=== PATIENT | female | born 1960 | race Caucasian/White ===

== ENCOUNTER → 2016-11-07 | Outpatient (CLI) | payer OTHER ==
--- NOTE | 2016-11-07 16:45 | RADIOLOGY REPORT (SQ) ---
EXAM DESCRIPTION: MRI LUMBAR SPINE WITHOUT COMPLETED DATE/TIME: 11/07/2016 3:46 pm REASON FOR STUDY: LOWER BACK PAIN SCIATICA M54.5 LOW BACK PAIN M54.30 SCIATICA, UNSPECIFIED SIDE COMPARISON: None. TECHNIQUE: Sagittal and Axial imaging includes T1, T2, STIR and gradient echo sequences. Coronal T2/ HASTE imaging. LIMITATIONS: None. FINDINGS: VISUALIZED UPPER ABDOMEN: Left upper pole 5 cm renal cortical cyst SEGMENTATION: No transitional anatomy. The lowest well-developed disc space is labeled L5-S1. ALIGNMENT: Anatomic. VERTEBRAE: Intact. BONE MARROW: Normal. No marrow replacement or reactive changes. DISC SIGNAL: Decreased T2 weighted intervertebral disc signal with disc space loss of height at L1-2. POSTERIOR ELEMENTS: Generally intact. No pars defect evident. HARDWARE: None in the spine. CORD AND CONUS: Normal in size and signal intensity. Conus at the L1 level. SOFT TISSUES: No aortic aneurysm seen. No bulky retroperitoneal adenopathy or mass. No paraspinal mas s or fluid. T11-12: No central or foraminal stenosis. Mild bilateral facet hypertrophy. T12-L1: No central or foraminal stenosis. L1-L2: Mild diffuse posterior disc bulge and mild bilateral facet and ligament hypertrophy cause bord delaney central canal narrowing. Mild bilateral inferior foraminal narrowing without exiting L1 nerve root impingement. L2-L3: No significant spinal stenosis or exit foraminal stenosis. Mild bilateral facet hypertrophy. L3-L4: Broad diffuse posterior disc bulging is present with more focal left foraminal and lateral pro trusion. This finding along with moderate bilateral facet and ligament hypertrophy causes borderline central canal narrowing. No right foraminal stenosis. Mild left foraminal stenosis inferiorly with out exiting L3 nerve root impingement. L4-L5: Mild diffuse posterior disc bulging as with more focal left foraminal and lateral disc bulge. This finding along with moderate facet and ligament hypertrophy causes borderline central canal narr owing. No right foraminal narrowing. Mild inferior left foraminal narrowing without exiting L4 nerv e root impingement. L5-S1: No significant spinal stenosis or exit foraminal stenosis. Mild bilateral facet hypertrophy. SACRUM: Visualized upper sacrum intact. OTHER: No other significant findings. IMPRESSION: Mild diffuse degenerative changes as above TECHNICAL DOCUMENTATION: JOB ID: [id number]- All Rights Reserved
== END ==
LOC: RAD 14:45
PROVIDERS: ATTEND Physician Assistant
DX: M54.40 Lumbago with sciatica, unspecified side (principal)
CPT/HCPCS: 72148

== ENCOUNTER 2018-12-06 12:50 | Emergency (ER) | payer OTHER ==
--- NOTE | 2018-12-06 13:34 | ER Document Report ---
ED General - General Chief Complaint: Leg Injury Stated Complaint: RIGHT LEG INJURY Time Seen by Provider: 12/06/18 13:34 Primary Care Provider: LISANDRA CHAVARRIA MD [Primary Care Provider] - 12/16/18 (FOR SUTURE REMOVAL) TRAVEL OUTSIDE OF THE [place] IN LAST 30 DAYS: No - HPI Notes: 58 year old female to the ED with C/O right lower leg injury. States she has been moving and was packing a wooden box. States she dropped what she was packing and it cut her as she dropped. States that it bled alot and she was concerned so she called EMS. EMS came to her home and dressed the wound. States she is unsure of when her last tetanus was. Denies any fevers, chills, NVD, any other complaints. She is not on any blood thinners. - Related Data Allergies/Adverse Reactions: levofloxacin [From Levaquin] Allergy (Verified 12/06/18 13:07) NSAIDS (Non-Steroidal Anti-Inflamma Allergy (Verified 12/06/18 13:07) Past Medical History - General Information source: Patient - Social History Smoking Status: Never Smoker Frequency of alcohol use: None Drug Abuse: None Family History: Reviewed & Not Pertinent Review of Systems - Review of Systems Constitutional: denies: Chills, Diaphoresis, Fever EENT: No symptoms reported Cardiovascular: denies: Chest pain, Palpitations, Dyspnea, Edema Respiratory: denies: Short of breath Gastrointestinal: denies: Abdominal pain, Diarrhea, Nausea, Vomiting Genitourinary: No symptoms reported Musculoskeletal: Other - right anterior lyn pain Skin: Other - right anterior lyn laceration -: Yes All other systems reviewed and negative Physical Exam - Vital signs Vitals: Temp Pulse Resp BP Pulse Ox 98.4 F 78 16 102/72 100 12/06/18 13:01 12/06/18 13:01 12/06/18 13:01 12/06/18 13:01 12/06/18 13:01 Interpretation: Normal - General General appearance: Appears well In distress: None - HEENT Head: Normocephalic, Atraumatic Eyes: Normal Pupils: PERRL - Respiratory Respiratory status: No respiratory distress Chest status: Nontender Breath sounds: Normal Chest palpation: Normal - Cardiovascular Rhythm: Regular Heart sounds: Normal auscultation Murmur: No - Abdominal Inspection: Normal Distension: No distension Bowel sounds: Normal Tenderness: Nontender Organomegaly: No organomegaly - Skin Skin Temperature: Warm Skin Moisture: Dry Skin irregularity: Laceration - to the right anterior lyn, there is a partial skin avulsion with a laceration. To the proximal portion of the wound is an soft tissue avulsion and cannot be repaired. To the lower portion of the wound, it will required repair. Course - Vital Signs Vital signs: Temp Pulse Resp BP Pulse Ox 98.4 F 72 16 113/78 100 12/06/18 13:01 12/06/18 17:34 12/06/18 17:34 12/06/18 17:34 12/06/18 17:34 - Transfer of Care Notes: 12/06/18 Impression: Lower leg laceration and skin tear. Patient tolerated repair well. Suture removal in 10 days. Will cover with Abx prophylactically. Will have her follow with PCP. Encouraged to return if fever, worsening pain, redness, purulent drainage. Patient agrees with the plan. Procedures - Laceration/Wound Repair Right Anterior Leg Time completed: 14:00 Wound length (cm): 4 Wound's Depth, Shape: Superficial Laceration pre-procedure: Sterile PPE donned, Sterile drapes applied, Shur-Clens applied Anesthetic type: 1% Lidocaine Volume Anesthetic (mLs): 5 Wound explored: Clean Irrigated w/ Saline (mLs): 100 Wound Debrided: Minimal Wound Repaired With: Sutures Suture Size/Type: 4:0 Number of Sutures: 4 Layer Closure?: No Post-procedure wound care: Other - nonadhesive dressing Post-procedure NV exam normal: Yes Discharge - Discharge Clinical Impression: Laceration of right lower leg, Skin tear Condition: Good Disposition: HOME, SELF-CARE Instructions: Laceration Care ([facility]) Additional Instructions: KEEP WOUND CLEAN AND DRY. SUTURE REMOVAL IN 10 DAYS. RETURN IF WORSENING PAIN, FEVERS, REDNESS, PUS. Prescriptions: Cephalexin Monohydrate [Keflex 500 mg Capsule] 500 mg PO QID 5 Days #20 capsule Referrals: LISANDRA CHAVARIRA MD [Primary Care Provider] - 12/16/18 (FOR SUTURE REMOVAL)
[2018-12-06] MEDS ORDERED: LIDOCAINE 1% INJ-PF (10 MG/ML) 30 ML SDV INJ ONE (14:37)
[2018-12-06] MEDS ORDERED: ACETAMINOPHEN 325 MG TABLET PO ONE (14:38)
[2018-12-06] MEDS ORDERED: DIPH/PERTUSS(ACELL)/TETANUS VAC/PF 0.5 ML SYR (>=10YO) IM ONE (14:40)
[2018-12-06 17:35] VITALS: BP 113/78
== END 2018-12-06 17:35 | disposition home or self-care (01) ==
LOC: ER 12:50
DX: S81.811A Laceration without foreign body, right lower leg, initial encounter (principal); W20.8XXA Other cause of strike by thrown, projected or falling object, initial encounter; Y93.E6 Activity, residential relocation; Y92.009 Unspecified place in unspecified non-institutional (private) residence as the place of occurrence of the external cause; Z88.1 Allergy status to other antibiotic agents; Z88.8 Allergy status to other drugs, medicaments and biological substances
CPT/HCPCS: 99283; 90471; 90715; 12002; J3490